=== PATIENT | female | born 1960 | race Caucasian/White ===

== ENCOUNTER → 2018-03-13 10:53 | Outpatient (CLI) | payer BC, SELFPAY ==
--- NOTE | 2018-03-13 | DI.MG.S_ITS ---
BILATERAL DIGITAL SCREENING MAMMOGRAM 3D/2D WITH CAD: 03/13/2018 CLINICAL: Routine screening. Comparison is made to exams dated: 09/27/2016 mammogram, 05/06/2015 mammogram, and 11/18/2014 mammogram - [facility]. The tissue of both breasts is heterogeneously dense. This may lower the sensitivity of mammography. Current study was also evaluated with a Computer Aided Detection (CAD) system. No significant masses, calcifications, or other findings are seen in either breast. There has been no significant interval change. IMPRESSION: NEGATIVE There is no mammographic evidence of malignancy. A 1 year screening mammogram is recommended. This exam was interpreted at Station ID: [id number]. NOTE: For mammograms, a report in lay terms will be sent to the patient. Approximately 15% of breast malignancies will not be visualized mammographically. In the management of a palpable breast mass, a negative mammogram must not discourage biopsy of a clinically suspicious lesion. Electronically Signed By: Monico salter/agueda:03/13/2018 21:47:58 letter sent: Normal Exam ACR BI-RADS Category 1: Negative 3341F
== END ==
PROVIDERS: Family Provider Family Medicine; PCP Family Medicine; Visit Provider Family Medicine
DX: Z12.31 Encounter for screening mammogram for malignant neoplasm of breast (principal)
CPT/HCPCS: 77063; 77067

== ENCOUNTER 2018-10-08 19:34 | Emergency (ER) | payer OTHER, SELFPAY ==
[2018-10-08 19:59] VITALS: BP 169/78; PULSE 103; PULSE 93; RESP 16; RESP 22; TEMP 36.2; O2SAT 98; O2SAT 99; BMI 24.7
[2018-10-08] MEDS: ALBUTEROL/IPRATROPIUM 3 ML AMPUL INH (19:59)
--- NOTE | 2018-10-08 20:05 | ED_ITS ---
HPI - URI/Sore Throat General Chief Complaint: Upper Respiratory Symptoms Stated Complaint: SOB, head cold Time Seen by Provider: 10/08/18 19:56 Source: patient Mode of arrival: ambulatory Limitations: no limitations History of Present Illness HPI Narrative: Patient is 58-year-old female who presents with upper respiratory like symptoms. She has had sinus and head cold for the last week. She was prescribed a Z-Eugene 3 days ago which she said really did not help and last evening settled into her chest and it got much worse. This evening family member came home and noticed that she was had audible wheezing and extreme difficulty breathing brought her to the emergency department. Patient has not had body aches or chills. She does feel like had a lot of nasal pressure and discharge. She says that she gets short of breath when she walks and does have some shortness of breath at rest. She denies any chest pain. Related Data Previous Rx's Medication Instructions Recorded azithromycin [Zithromax Z-Eugene] 0 mg PO QDAY #12 tab 03/04/17 azithromycin 250 mg tablet 250 mg PO DAILY #11 tab 10/02/18 amoxicillin 875 mg-potassium 1 tab PO BID #10 tab 10/08/18 clavulanate 125 mg tablet Allergies Allergy/AdvReac Type Severity Reaction Status Date / Time shellfish derived Allergy Severe SWELLING Unverified 12/04/17 11:57 [SHELLFISH DERIVED] OF TONGUE latex [LATEX] Allergy Mild ITCHY, SORE Unverified 12/04/17 11:57 POLLEN Allergy Mild Uncoded 12/04/17 11:57 FEATHERS Allergy Unknown Uncoded 12/04/17 11:57 Review of Systems Review of Systems ROS Unobtainable: All systems reviewed & are unremarkable except as noted in HPI and below Constitutional Denies chills, Denies fever(s), Denies headache(s), Denies lethargy and Denies weakness ENT Ears, Nose, Mouth, and Throat: Denies headache(s), Reports sinus pain and Reports sinus pressure Cardiovascular Denies chest pain, Denies irregular heart rhythm, Denies lightheadedness, Denies palpitations, Reports dyspnea on exertion and Denies orthopnea Respiratory Denies excessive phlegm production, Denies pain on inspiration, Reports dyspnea on exertion and Reports wheezing Gastrointestinal Gastrointestinal: Denies abdominal pain, Denies change in bowel habits, Denies diarrhea, Denies nausea and Denies vomiting Musculoskeletal Denies back pain, Denies muscle weakness, Denies numbness and Denies tingling Integumentary/Breasts Denies pruritus, Denies erythema, Denies rash and Denies wounds Neurologic Denies headache(s), Denies numbness, Denies tingling and Denies weakness Endocrine Denies palpitations Allergic/Immunologic Reports wheezing [facility] Medical History Carpal tunnel syndrome (Chronic) Endometriosis (Chronic) Foot pain (Chronic) Ovarian cyst (Chronic) Seasonal allergies (Chronic) Tinnitus (Chronic) Chickenpox (Resolved) Measles (Resolved) Mumps (Resolved) Surgical History Surgical procedure planned (Resolved ~2011) Anesthesia (Inactive) Status post cholecystectomy (~1997) Family History Brother Diabetes mellitus Father Age: 93 Prostate cancer Mother MS (multiple sclerosis) Social History Smoking Status: Never smoker Family History Brother Diabetes mellitus Father Age: 93 Prostate cancer Mother MS (multiple sclerosis) Social History Smoking Status: Never smoker Exam Initial Vital Signs Initial Vital Signs: Vital Signs Temperature 97.2 F L 10/08/18 19:59 Pulse Rate 93 H 10/08/18 19:59 Respiratory Rate 16 10/08/18 19:59 Blood Pressure 169/78 H 10/08/18 19:59 Pulse Oximetry 99 10/08/18 19:59 GENERAL: alert female appears in mild distress HEENT: Head atraumatic,EOMI, pupils reactive, Neck is supple CARDIOVASCULAR: Regular rate and rhythm without murmurs, rubs or gallops. RESPIRATORY: speaks in full sentences his without difficulty slightly decreased breath sounds bilaterally no wheezes or rales ABDOMEN: Soft, nontender. Normoactive bowel sounds all 4 quadrants. No guarding or rebound. EXTREMITIES: Normal range of motion, no clubbing or edema. Neurovascularly intact NEUROLOGICAL: Alert and oriented x4.Normal gait and speech. SKIN: Warm, dry, no laceration, no petechiae, no rashes or lesions. Scores PERC Score Age greater than or equal to 50 years: Yes Heart rate greater than or equal to 100 bpm: No Room Air O2 Sat less than 95%: No Unilateral leg swelling: No Recent trauma or surgery: No Hemoptysis: No Prior PE or DVT: No Hormone Use: No Total PERC Score: 1 Wells' Criteria for PE Clinical signs and symptoms of PE: No PE is #1 Dx or equally likely: No Heart rate > 100: No Immobilization at least 3 days or surg in previous 4 weeks: No History of PE or DVT: No Hemoptysis: No Malignancy w/Treatment within 6 months or palliative: No Wells' PE Score total: 0 Course Orders Ordered: ED Orders 10/08/18 20:26 XR chest 2V Stat Discontinued Medications Albuterol (Ventolin Hfa Prepack) 1 box MISC SEEINSTR ONE Stop: 10/08/18 20:58 Last Admin: 10/08/18 21:08 Dose: 1 box Albuterol/Ipratropium (Duoneb) 3 ml INH NOW ONE Stop: 10/08/18 19:58 Last Admin: 10/08/18 19:59 Dose: 3 ml Vital Signs - 8 hr 10/08/18 19:59 10/08/18 21:17 Temperature 97.2 F L Pulse Rate 103 H 98 H Respiratory Rate 22 18 Blood Pressure 169/78 H 94/55 L Pulse Oximetry 98 95 MDM - URI/Sore Throat Imaging Data Chest x-ray: Radiologist's impression: PROCEDURE: XR CHEST 2V INDICATIONS: cough short of breath TECHNIQUE: 2 views of the chest were acquired. COMPARISON: [facility], , CHEST 1 VIEW, 05/16/2016, 12:52. FINDINGS: Surgical changes and devices: None. Lungs and pleura: Lungs are clear. No pleural effusions or pneumothorax. Mediastinum: Mediastinal contours are normal. Heart size is normal. Bones and chest wall: No suspicious bony abnormalities. Soft tissues appear unremarkable. IMPRESSION: No acute cardiopulmonary pathology. Dictated by: Jason Odell M.D. on 10/08/2018 at 20:47 MDM Narrative Medical decision making narrative: patient is feeling instantly better after albuterol. She has no body aches fever or productive cough. She has sinus and upper respiratory like symptoms. She states that she actually did fly on an airplane all last week from [place] she said it was only 2 hr. No history of blood clots. She denies any calf pain. I did discuss with her possibility of PE although based on upper respiratory like symptoms, seems more like a viral syndrome. Patient was hesitant to have x-ray but eventually agreed. Declined any further workup. respiratory instructed her on spacer teaching. Discharge Plan Departure Patient Disposition: Home Clinical Impression: Upper respiratory infection Qualifiers: URI type: unspecified viral URI Qualified Code(s): J06.9 - Acute upper respiratory infection, unspecified Discharge Date/Time: 10/08/18 21:20 Interventions: ED Discharge Assessment Last Done: 10/08/18 21:17 Instructions: DI for Viral Upper Respiratory Infection -- Adult Activity Restrictions/Additional Instructions: *You have been diagnosed with upper respiratory infection *What to do: at this time no pneumonia identified. *Continue to take medications as directed Albuterol inhaler with spacer 1-2 puffs every 4 hr if needed for shortness of breath finished Augmentin as previously prescribed *Follow up with your primary care provider in 2-3 days *Return to ER if you should have increasing shortness of breath, fever, productive cough or any new, worsening or concerning symptoms Prescriptions: No Action azithromycin [Zithromax Z-Eugene] 250 MG tablet PO QDAY Qty: 12 RF: 1 azithromycin 250 mg tablet 250 mg PO DAILY Qty: 11 RF: 0 amoxicillin-pot clavulanate [Augmentin] 875-125 mg tablet 1 tab PO BID Qty: 10 RF: 0 Referrals: Missy Ram DO [Primary Care Provider] -
--- NOTE | 2018-10-08 20:26 | DI.RAD.S_ITS ---
PROCEDURE: XR CHEST 2V INDICATIONS: cough short of breath TECHNIQUE: 2 views of the chest were acquired. COMPARISON: [facility], , CHEST 1 VIEW, 05/16/2016, 12:52. FINDINGS: Surgical changes and devices: None. Lungs and pleura: Lungs are clear. No pleural effusions or pneumothorax. Mediastinum: Mediastinal contours are normal. Heart size is normal. Bones and chest wall: No suspicious bony abnormalities. Soft tissues appear unremarkable. IMPRESSION: No acute cardiopulmonary pathology. Dictated by: Jason Odell M.D. on 10/08/2018 at 20:47 Approved by: Jason Odell M.D. on 10/08/2018 at 20:47
[2018-10-08] MEDS: ALBUTEROL HFA PREPACK 1 BOX MISC (21:08)
--- NOTE | 2018-10-08 21:16 | PC.NURSE ---
I agree with all assessments and treatments completed by the student nurse.
[2018-10-08 21:17] VITALS: BP 94/55; PULSE 98; RESP 18; O2SAT 95
== END 2018-10-08 21:20 | disposition home or self-care (01) ==
PROVIDERS: Emergency Provider Emergency Medicine; Family Provider Family Medicine; PCP Family Medicine
DX: J06.9 Acute upper respiratory infection, unspecified (principal)
CPT/HCPCS: 71046; 94640; 99282; 99283

== ENCOUNTER → 2019-03-16 11:09 | Outpatient (CLI) | payer OTHER, SELFPAY ==
--- NOTE | 2019-03-16 | DI.MG.S_ITS ---
BILATERAL DIGITAL SCREENING MAMMOGRAM 3D/2D WITH CAD: 03/16/2019 CLINICAL: Routine screening. Comparison is made to exams dated: 03/13/2018 mammogram, 09/27/2016 mammogram, and 05/06/2015 mammogram - [facility]. The tissue of both breasts is heterogeneously dense. This may lower the sensitivity of mammography. Current study was also evaluated with a Computer Aided Detection (CAD) system. No significant masses, calcifications, or other findings are seen in either breast. There has been no significant interval change. IMPRESSION: NEGATIVE There is no mammographic evidence of malignancy. A 1 year screening mammogram is recommended. This exam was interpreted at Station ID: [id number]. NOTE: For mammograms, a report in lay terms will be sent to the patient. Approximately 15% of breast malignancies will not be visualized mammographically. In the management of a palpable breast mass, a negative mammogram must not discourage biopsy of a clinically suspicious lesion. Electronically Signed By: Neelima salgado/agueda:03/16/2019 12:39:14 letter sent: Normal Exam ACR BI-RADS Category 1: Negative 3341F
== END ==
PROVIDERS: Family Provider Family Medicine; PCP Family Medicine; Visit Provider Family Medicine
DX: Z12.31 Encounter for screening mammogram for malignant neoplasm of breast (principal)
CPT/HCPCS: 77063; 77067

== ENCOUNTER → 2019-03-17 07:29 | Outpatient (CLI) | payer OTHER, SELFPAY ==
[2019-03-17 08:11] LABS: Add Manual Diff / Slide Review NO; Basophils Absolute Auto 0 /uL (0-100); Basophils Percent Auto 0.8 % (0-2); Eosinophils Absolute Auto 200 /uL (0-450); Eosinophils Percent Auto 3.6 % (2-4); Hematocrit 40.7 % (36-46); Hemoglobin 13.8 g/dL (12.0-16.0); Lymphocytes Absolute Auto 2200 /uL (1100-4500); Lymphocytes Percent Auto 41.7 % (25-40); Mean Corpuscular HGB Conc 33.8 % (30-36); Mean Corpuscular Hemoglobin 30.5 PG (26-34); Mean Corpuscular Volume 90.3 fL (80-100); Monocytes Absolute Auto 400 /uL (0-900); Monocytes Percent Auto 7.6 % (3-14); Neutrophils Absolute Auto 2500 /uL (1500-7000); Neutrophils Percent Auto 46.3 % (50-75); Platelet Count 271 X10^3/uL (150-400); Red Blood Cell Count 4.51 X10^6/uL (4.0-5.2); Red Cell Distribution Width 12.7 % (11.6-14.8); White Blood Cell Count 5.3 X10^3/uL (4.5-11.0)
[2019-03-17 08:34] LABS: Alanine Aminotransferase 23 IU/L (9-52); Albumin 4.6 g/dL (3.5-5.0); Albumin Globulin Ratio 1.3 (1.0-2.8); Alkaline Phosphatase 79 U/L (38-126); Aspartate Aminotransferase 39 IU/L (14-36); BUN Creatinine Ratio 17.8 (6-22); Bilirubin Total 0.7 mg/dL (0.2-1.3); Blood Urea Nitrogen 16 mg/dL (7-17); Calcium 9.7 mg/dL (8.4-10.2); Carbon Dioxide 29 mmol/L (22-32); Chloride 103 mmol/L (98-107); Cholesterol 221 mg/dL (140-199); Erythrocyte Sedimentation Rate 11 MM/HR (0-20); Estimated Glomerular Filt Rate > 60.0 mL/min (>60); Globulin 3.5 g/dL (1.7-4.1); Glucose 90 mg/dL (80-110); HDL Cholesterol 63 mg/dL (40-60); HEMOLYSIS < 15 (0-50); LDL Cholesterol Calculated 141 mg/dL (<100); Potassium 4.2 mmol/L (3.4-5.1); Sodium 142 mmol/L (137-145); Total Protein 8.1 g/dL (6.3-8.2); Triglycerides 86 mg/dL (35-150)
[2019-03-17 08:35] LABS: C-Reactive Protein Quant < 0.5 mg/dL (<1.0)
[2019-03-17 08:38] LABS: Rheumatoid Factor < 8.6 IU/mL (<12.0)
[2019-03-17 09:01] LABS: TSH w/ Reflex to FT4 1.32 uIU/mL (0.47-4.68)
[2019-03-19 11:53] LABS: CCP Antibody (IgG) < 16 Units (< 20)
[2019-03-19 18:48] LABS: ANA Screen, IFA Negative (Negative)
[2019-03-20 14:46] LABS: Anti Thyroglobulin Antibody < 1 IU/mL (< 2); Thyroid Peroxidase Antibodies 1 IU/mL (< 9)
== END ==
PROVIDERS: PCP Family Medicine; Visit Provider Family Medicine
DX: M79.10 Myalgia, unspecified site (principal); R00.2 Palpitations; R21 Rash and other nonspecific skin eruption
CPT/HCPCS: 36415; 80053; 80061; 84443; 85025; 85651; 86038; 86140; 86200; 86376; 86430; 86800

== ENCOUNTER → 2019-03-26 15:04 | Outpatient (CLI) | payer OTHER, SELFPAY ==
--- NOTE | 2019-03-26 15:05 | DI.RAD.S_ITS ---
PROCEDURE: XR HIP W PEL IF DONE LT MIN 4V INDICATIONS: Hip pain TECHNIQUE: AP pelvis with lateral view(s) of the bilateral hip(s). COMPARISON: None. FINDINGS: Bones: No fractures or dislocations. Pelvic ring appears intact. No suspicious bony lesions. There is a slight degree of thinning of the joint interspace at each hip, symmetric bilaterally. Soft tissues: The visualized bowel gas pattern is normal. No suspicious soft tissue calcifications. IMPRESSION: Minimal hip joint osteoarthritis appears present at each hip, symmetric, without evidence of joint effusion or loose body. No prior trauma found. Dictated by: Pratik Mason M.D. on 03/26/2019 at 15:51 Approved by: Pratik Mason M.D. on 03/26/2019 at 15:52
== END ==
PROVIDERS: PCP Family Medicine; Visit Provider Family Medicine
DX: M25.552 Pain in left hip (principal)
CPT/HCPCS: 73522

== ENCOUNTER 2019-04-16 06:42 | Day surgery (SDC) | payer OTHER, SELFPAY ==
[2019-04-16 07:13] VITALS: BMI 24.2
[2019-04-16 07:16] VITALS: BP 101/56; PULSE 61; RESP 16; TEMP 35.9; O2SAT 96
[2019-04-16] MEDS: FLEETS ENEMA 1 EACH PR (07:45)
[2019-04-16] MEDS: SODIUM CHLORIDE 0.9% 1,000 ML 84 ML IV (08:12)
--- NOTE | 2019-04-16 08:14 | PM.HP.1 ---
History of Present Illness Date Patient Seen: 04/16/19 Time Patient Seen: 08:14 Chief complaint: [id number] Colonoscopy Narrative: The patient is a woman here for screening colonoscopy. Last exam was 10 years ago. No family history colon cancer. Patient History Medical History Carpal tunnel syndrome (Chronic) Endometriosis (Chronic) Foot pain (Chronic) Ovarian cyst (Chronic) Seasonal allergies (Chronic) Tinnitus (Chronic) Chickenpox (Resolved) Measles (Resolved) Mumps (Resolved) Surgical History Surgical procedure planned (Resolved ~2011) Anesthesia (Inactive) Status post cholecystectomy (~1997) Family History Brother Diabetes mellitus Father Age: 94 Prostate cancer Mother MS (multiple sclerosis) Social History household members: spouse Smoking Status: Never smoker Family & Social History Family History Brother Diabetes mellitus Father Age: 94 Prostate cancer Mother MS (multiple sclerosis) Social History: household members spouse Tobacco & Substance use: Smoking Status Never smoker alcohol intake frequency a few times a month Substance Use Type does not use Meds Home Medications Medication Instructions Recorded Confirmed Type [id number]-[id number] 1 tab PO DAILY 04/16/19 04/16/19 History [Multivitamin 50 Plus] Allergies Allergy/AdvReac Type Severity Reaction Status Date / Time shellfish derived Allergy Severe SWELLING Verified 04/16/19 07:12 [SHELLFISH DERIVED] OF TONGUE latex [LATEX] AdvReac Mild ITCHY, SORE Verified 04/16/19 07:12 POLLEN Allergy Mild Uncoded 12/04/17 11:57 FEATHERS Allergy Unknown Uncoded 12/04/17 11:57 Review of Systems Review of Systems All systems reviewed & are unremarkable except as noted in HPI and below Exam Vital Signs (past 8 hours): - 04/16/19 07:16 Temperature 96.6 F L Pulse Rate 61 Respiratory Rate 16 Blood Pressure 101/56 L Pulse Oximetry 96 Oxygen Delivery Method Room Air Narrative Exam Narrative: Pleasant cooperative patient no apparent distress. Lungs are clear to auscultation. No rales or rhonchi. Heart regular rate and rhythm no murmur gallop. Abdomen is soft nontender without mass. No obvious hernias. Patient is alert and oriented x3. Assessment & Plan Assessment & Plan narrative: The patient for a screening colonoscopy. I have discussed the procedure with them. Risks of bleeding, perforation which would necessitate major operation, failure to find remove all lesions, the potential tattoo were all discussed. All questions were answered. They wished to proceed.
--- NOTE | 2019-04-16 08:15 | PM.PREOP ---
Pre-operative Note Interval Note History & Physical reviewed/Exam performed by Physician: Yes Changes to H&P: No ASA Class (for procedural sedation): I
[2019-04-16] MEDS: MIDAZOLAM 5 MG/5 ML VIAL IV (08:50)
[2019-04-16] MEDS: fentaNYL 250 MCG/5 ML INJ IV (08:51)
--- NOTE | 2019-04-16 08:57 | P.OP.ENDO_ITS ---
Operative Date/Time/Diagnoses Date of procedure: 04/16/19 Time of procedure: 08:55 Pre-op diagnosis: Screening exam. Last exam 10 years ago. Post-op diagnosis: same (Internal hemorrhoids) Procedure & Clinicians Study performed: Colonoscopy Same procedure as scheduled: Yes Indications: Screening Surgeon: Damian Hassan Procedure Notes SCOAP/Timeout: Performed Procedure in detail: The patient was placed in the left lateral decubitus position and underwent IV sedation directed by the surgeon consisting of fentanyl and Versed. Digital exam was unremarkable. The scope was inserted and advanced through the rectum into the sigmoid, descending, transverse, and ascending colon. Pressure was applied and the patient repositioned to get that far. The cecum was reached identified by the ileocecal valve and the appendic eal opening. The ileocecal valve was[] cannulated. The terminal ileum was normal in appearance. The scope was gradually brought out. No Polyps were found. The scope ultimately was retroflexed in the rectum. The appearance was remarkable for internal hemorrhoids without ulceration.. The scope was removed and the patient tolerated the procedure well. Prep was good Scope withdrawal time: 7 minutes Sedation minutes: 29 Findings: internal hemorrhoids Specimen(s): none sent Complications: none Recommendations: Colonscopy in 10 years Follow up: as needed Disposition: PACU
[2019-04-16 09:00] VITALS: BP 101/56; PULSE 79; RESP 14; TEMP 36.6; O2SAT 98
[2019-04-16 09:05] VITALS: BP 93/49; PULSE 78; RESP 14; O2SAT 98
[2019-04-16 09:10] VITALS: BP 83/47; PULSE 72; RESP 15; O2SAT 98
[2019-04-16 09:16] VITALS: BP 93/54; PULSE 78; RESP 17; O2SAT 99
[2019-04-16 09:25] VITALS: BP 99/60; PULSE 82; RESP 17; TEMP 36.6; O2SAT 99
== END 2019-04-16 09:30 | disposition home or self-care (01) ==
PROVIDERS: PCP Family Medicine; Visit Provider Specialist
PROC: 0DJD8ZZ Inspection of Lower Intestinal Tract, Via Natural or Artificial Opening Endoscopic (ICD-10-PCS; CPT 45378; principal; 2019-04-16 07:45)
DX: Z12.11 Encounter for screening for malignant neoplasm of colon (principal); K64.8 Other hemorrhoids
CPT/HCPCS: G0121; 99152; 99153; J2250; J3010

== ENCOUNTER → 2020-07-16 13:02 | Outpatient (CLI) | payer OTHER, SELFPAY ==
--- NOTE | 2020-07-16 13:20 | DI.MG.S_ITS ---
Patient Name: ARVIND REHMAN date: 1960 Sex: F Attending Physician: Yo Indications: Date: 07/16/2020 13:13 At the request of: USMAN CARR Procedure: MM screening mammo BI BILATERAL DIGITAL SCREENING MAMMOGRAM 3D/2D WITH CAD: 07/16/2020 CLINICAL: Routine screening. Comparison is made to exams dated: 03/16/2019 mammogram, 03/13/2018 mammogram, and 09/27/2016 mammogram - [facility]. The tissue of both breasts is heterogeneously dense. This may lower the sensitivity of mammography. Current study was also evaluated with a Computer Aided Detection (CAD) system. No significant masses, calcifications, or other findings are seen in either breast. There has been no significant interval change. IMPRESSION: NEGATIVE There is no mammographic evidence of malignancy. A 1 year screening mammogram is recommended. This exam was interpreted at Station ID: [id number]. NOTE: For mammograms, a report in lay terms will be sent to the patient. Approximately 15% of breast malignancies will not be visualized mammographically. In the management of a palpable breast mass, a negative mammogram must not discourage biopsy of a clinically suspicious lesion. Electronically Signed By: Nash rodriguez/agueda:07/18/2020 08:14:15 letter sent: Normal Exam ACR BI-RADS Category 1: Negative 3341F
== END ==
PROVIDERS: PCP Family Medicine; Referring Provider Family Medicine; Visit Provider Family Medicine
DX: Z12.31 Encounter for screening mammogram for malignant neoplasm of breast (principal)
CPT/HCPCS: 77063; 77067

== ENCOUNTER → 2020-09-21 11:11 | Outpatient (CLI) | payer OTHER, SELFPAY ==
[2020-09-21 11:44] LABS: Hematocrit 42.3 % (36-46); Hemoglobin 13.7 g/dL (12.0-16.0); Mean Corpuscular HGB Conc 32.4 % (30-36); Mean Corpuscular Hemoglobin 29.6 PG (26-34); Mean Corpuscular Volume 91.4 fL (80-100); Platelet Count 266 X10^3/uL (150-400); Red Blood Cell Count 4.63 X10^6/uL (4.0-5.2); Red Cell Distribution Width 12.7 % (11.6-14.8); White Blood Cell Count 6.3 X10^3/uL (4.5-11.0)
[2020-09-21 12:43] LABS: Alanine Aminotransferase 17 IU/L (<35); Albumin 4.3 g/dL (3.5-5.0); Albumin Globulin Ratio 1.3 (1.0-2.8); Alkaline Phosphatase 78 U/L (38-126); Aspartate Aminotransferase 37 IU/L (14-36); BUN Creatinine Ratio 16.9 (6-22); Bilirubin Total 0.4 mg/dL (0.2-1.3); Blood Urea Nitrogen 13 mg/dL (7-17); Calcium 9.3 mg/dL (8.4-10.2); Carbon Dioxide 30 mmol/L (22-32); Chloride 107 mmol/L (98-107); Cholesterol 191 mg/dL (140-199); Estimated Glomerular Filt Rate > 60.0 mL/min (>60); Globulin 3.4 g/dL (1.7-4.1); Glucose 104 mg/dL (80-110); HDL Cholesterol 58 mg/dL (40-60); HEMOLYSIS < 15 (0-50); LDL Cholesterol Calculated 106 mg/dL (<100); Potassium 4.1 mmol/L (3.4-5.1); Sodium 140 mmol/L (137-145); Total Protein 7.7 g/dL (6.3-8.2); Triglycerides 135 mg/dL (35-150)
[2020-09-21 12:54] LABS: Neutrophils Absolute Manual 4158 /uL (3000-5900); Total Cells Counted 100
[2020-09-21 12:55] LABS: RBC Morphology Normal Morphology
[2020-09-21 13:10] LABS: TSH w/ Reflex to FT4 1.05 uIU/mL (0.47-4.68)
== END ==
PROVIDERS: PCP Family Medicine; Referring Provider Family Medicine; Visit Provider Family Medicine
DX: Z00.00 Encounter for general adult medical examination without abnormal findings (principal); Z62.9 Problem related to upbringing, unspecified
CPT/HCPCS: 36415; 80053; 80061; 84443; 85025

== ENCOUNTER → 2020-09-22 15:35 | Outpatient (CLI) | payer OTHER, SELFPAY ==
[2020-09-22] MEDS: COVID-19 VACC #1, MRNA(MOD) 100 MCG/0.5 ML VIAL IM (15:38)
== END ==
PROVIDERS: PCP Family Medicine; Visit Provider Internal Medicine
DX: Z23 Encounter for immunization (principal)
CPT/HCPCS: 0011A; 91301

== ENCOUNTER → 2020-10-20 15:05 | Outpatient (CLI) | payer OTHER, SELFPAY ==
[2020-10-20 18:14] LABS: Hep C Virus Ab w/Reflex Quant NEGATIVE s/c (NEGATIVE)
== END ==
PROVIDERS: PCP Family Medicine; Referring Provider Family Medicine; Visit Provider Family Medicine
DX: R79.89 Other specified abnormal findings of blood chemistry (principal); Z11.59 Encounter for screening for other viral diseases
CPT/HCPCS: 36415; 86803

== ENCOUNTER → 2020-10-20 15:33 | Outpatient (CLI) | payer OTHER, SELFPAY ==
[2020-10-20] MEDS: COVID-19 VACC #2, MRNA(MOD) 100 MCG/0.5 ML VIAL IM (15:41)
== END ==
PROVIDERS: PCP Family Medicine; Visit Provider Internal Medicine
DX: Z23 Encounter for immunization (principal)
CPT/HCPCS: 0012A; 91301

== ENCOUNTER 2022-11-05 13:05 | Emergency (ER) | payer BC, SELFPAY ==
[2022-11-05] VITALS (13 sets, daily range): BP systolic 121–155; BP diastolic 62–77; PULSE 87–130; RESP 32; TEMP 36.4; O2SAT 95–100
--- NOTE | 2022-11-05 13:13 | DI.RAD.S_ITS ---
PROCEDURE: XR CHEST 1V INDICATIONS: Shortness of breath TECHNIQUE: One view of the chest was acquired. [facility], CHEST 1 VIEW, 05/16/2016, 12:52. FINDINGS: Surgical changes and devices: None. Lungs and pleura: Lungs are clear. No pleural effusions or pneumothorax. Mediastinum: Mediastinal contours appear normal. Heart size is normal. Bones and chest wall: No suspicious bony lesions. Overlying soft tissues appear unremarkable. IMPRESSION: No acute cardiopulmonary process. Dictated by: Delvis Molina M.D. on 11/05/2022 at 13:42 Approved by: Delvis Molina M.D. on 11/05/2022 at 13:43
[2022-11-05] MEDS: ALBUTEROL/IPRATROPIUM 3 ML AMPUL INH ×2 (13:17→13:56)
[2022-11-05 13:50] LABS: Add Manual Diff / Slide Review NO; Basophils Absolute Auto 100 /uL (0-100); Basophils Percent Auto 0.6 % (0-2); Eosinophils Absolute Auto 200 /uL (0-450); Eosinophils Percent Auto 1.4 % (2-4); Hematocrit 39.7 % (36-46); Hemoglobin 13.6 g/dL (12.0-16.0); Lymphocytes Absolute Auto 3800 /uL (1100-4500); Lymphocytes Percent Auto 28.9 % (25-40); Mean Corpuscular HGB Conc 34.2 % (30-36); Mean Corpuscular Volume 87.5 fL (80-100); Monocytes Absolute Auto 1000 /uL (0-900); Monocytes Percent Auto 7.5 % (3-14); Neutrophils Absolute Auto 8100 /uL (1500-7000); Neutrophils Percent Auto 61.6 % (50-75); Platelet Count 236 X10^3/uL (150-400); Red Blood Cell Count 4.54 X10^6/uL (4.0-5.2); Red Cell Distribution Width 12.7 % (11.6-14.8); White Blood Cell Count 13.2 X10^3/uL (4.5-11.0)
[2022-11-05 13:57] LABS: INR 1.1 (0.9-1.3); Prothrombin Time 12.6 SECONDS (10.1-12.7)
[2022-11-05 14:02] LABS: Alanine Aminotransferase 24 IU/L (<35); Albumin 4.4 g/dL (3.5-5.0); Albumin Globulin Ratio 1.3 (1.0-2.8); Alkaline Phosphatase 101 U/L (38-126); Aspartate Aminotransferase 44 IU/L (14-36); BUN Creatinine Ratio 18.3 (6-22); Blood Urea Nitrogen 13 mg/dL (7-17); Calcium 8.9 mg/dL (8.4-10.2); Carbon Dioxide 19 mmol/L (22-32); Chloride 101 mmol/L (98-107); Estimated Glomerular Filt Rate > 60 mL/min (>60); Globulin 3.5 g/dL (1.7-4.1); Glucose 120 mg/dL (80-110); HEMOLYSIS < 15 (0-50); Lactate (Lactic Acid) 3.5 mmol/L (0.7-2.1); Potassium 3.1 mmol/L (3.4-5.1); Sodium 135 mmol/L (137-145); Total Protein 7.9 g/dL (6.3-8.2)
--- NOTE | 2022-11-05 14:08 | PC.NURSE ---
pt continues with wheezing. moving air well when auscultated however pt having difficulty breathing, having coughing, and a stridorous sound when inhaling. Hyma made aware and at bedside at this time. 100% RA. HR 140's s/p duoneb x 2
[2022-11-05 14:14] LABS: NT-proBNP (BNP-Adult 18+) 97 pg/mL (<125); Troponin I < 0.012 ng/mL (0.01-0.034)
[2022-11-05] MEDS: predniSONE 20 MG TABLET 60 MG PO (14:21)
[2022-11-05 14:31] LABS: Adenovirus Not Detected (Not Detect); B. parapertussis Not Detected (Not Detecte); Bordetella pertussis Not Detected (Not Detecte); Chlamydophila pneumoniae Not Detected (Not Detect); Coronavirus 229E Not Detected (Not Detect); Coronavirus HKU1 Not Detected (Not Detect); Coronavirus NL 63 Not Detected (Not Detect); Coronavirus OC43 Not Detected (Not Detect); Human Metapneumovirus Not Detected (Not Detect); Human Rhinovirus/Enterovirus Detected (Not Detect); Influenza A Not Detected (Not Detect); Influenza B Not Detected (Not Detect); Mycoplasma pneumoniae Not Detected (Not Detect); Parainfluenza Virus 1 Not Detected (Not Detect); Parainfluenza Virus 2 Not Detected (Not Detect); Parainfluenza Virus 3 Not Detected (Not Detect); Parainfluenza Virus 4 Not Detected (Not Detect); Respiratory Syncytial Virus Not Detected (Not Detect); SARS- CoV-2 Not Detected (Not Detecte)
[2022-11-05] MEDS: POTASSIUM CHLORIDE 20 MEQ TAB 40 MEQ PO (14:37)
--- NOTE | 2022-11-05 14:40 | PC.NURSE ---
Addendum entered by Kelsey Maguire R.N. 11/05/22 17:57: Educated patient on how to attempt to establish a new primary care provider. Also gave her a spacer for her inhaler and encouraged her to purchase a portable finger pulse ox for home use. Original Note: Patient reports feeling better and is asking questions about what going home will entail. Educated about potassium give per MAR and possible medications she could be sent home with.
[2022-11-05 15:46] LABS: Reflexed Lactate in 2 Hours Y
[2022-11-05] MEDS: SODIUM CHLORIDE 0.9% 1,000 ML 1000 ML IV (15:50)
[2022-11-05 16:51] LABS: Lactate 2HR (Lactic Acid Rflx) 2.6 mmol/L (0.7-2.1)
--- NOTE | 2022-11-12 18:51 | ED_ITS ---
HPI - SOB/Dyspnea <Kristy Angeles PA-C - Last Filed: 11/12/22 19:03> General Chief Complaint: Shortness of Breath/Dyspnea Stated Complaint: sob Time Seen by Provider: 11/05/22 13:19 Mode of arrival: Family Vehicle History of Present Illness HPI Narrative: 62-year-old female with past medical history asthma presents to the ED due to 2 days of wheezing, shortness of breath. patient states that yesterday she started feeling like she was coming down with a cold, woke up in the middle of the night feeling wheezy and short of breath. Patient states that she did not use her inhaler since she had run out of her prescription. Patient came to the ED since her symptoms worsened in the morning. Patient presents in the ED appearing dyspneic, anxious, with stridorous sounding breathing, saturating in the high 90s on room air. patient denies fever, chills, chest pain, nausea, vomiting, lightheadedness, dizziness, syncope. Related Data Home Medications Medication Instructions Recorded Confirmed [id number] 1 tab PO DAILY 04/16/19 09/21/20 tablet (Multivitamin 50 Plus tablet) Previous Rx's Medication Instructions Recorded azithromycin 250 mg tablet 250 mg PO DAILY #36 tabs 06/25/19 albuterol sulfate 90 mcg/actuation 2 puff inhalation Q4-6H PRN 11/05/22 aerosol inhaler shortness of breath or wheezing #8.5 grams albuterol sulfate 90 mcg/actuation 2 puff inhalation Q6H PRN 11/05/22 aerosol inhaler shortness of breath or wheezing #8.5 grams azithromycin 250 mg tablet 250 mg PO DAILY 14 days #14 tabs 11/05/22 Allergies Allergy/AdvReac Type Severity Reaction Status Date / Time shellfish derived Allergy Severe SWELLING Verified 11/05/22 13:12 [SHELLFISH DERIVED] OF TONGUE latex [LATEX] AdvReac Mild ITCHY, SORE Verified 11/05/22 13:12 POLLEN Allergy Mild Uncoded 11/05/22 13:12 FEATHERS Allergy Unknown Uncoded 11/05/22 13:12 Review of Systems <Kristy Angeles PA-C - Last Filed: 11/12/22 19:03> Review of Systems ROS Unobtainable: All systems reviewed & are unremarkable except as noted in HPI and below Constitutional Constitutional: Denies chills, Denies fatigue, Denies fever(s), Denies frequent falls, Denies lethargy and Denies weakness Eyes Eyes: Denies change in vision, Denies eye discharge, Denies irritation and Denies loss of vision ENT Ears, Nose, Mouth, and Throat: Denies change in voice, Denies dizziness, Reports nasal congestion, Reports nasal discharge, Denies neck pain, Denies sore throat and Denies throat swelling Cardiovascular Cardiovascular: Denies chest pain, Denies irregular heart rhythm, Denies lightheadedness, Denies palpitations, Reports dyspnea, Denies dyspnea on exertion and Denies orthopnea Respiratory Respiratory: Denies cough, Reports dyspnea, Denies dyspnea on exertion and Reports wheezing Gastrointestinal Gastrointestinal: Denies abdominal pain, Denies change in bowel habits, Denies diarrhea, Denies nausea and Denies vomiting Genitourinary Genitourinary: Denies hematuria, Denies flank pain, Denies urinary incontinence and Denies urinary urgency Musculoskeletal Musculoskeletal: Denies back pain, Denies muscle weakness, Denies neck pain, Denies numbness and Denies tingling Integumentary/Breasts Skin/Breast: Denies pruritus, Denies erythema, Denies rash and Denies wounds Neurologic Neurologic: Denies behavioral changes, Denies confusion, Denies dizziness, Denies frequent falls, Denies loss of vision, Denies numbness, Denies tingling and Denies weakness Psychiatric Psychiatric: Denies anxiety, Denies behavioral changes, Denies confusion, Denies depression, Denies homicidal ideation and Denies suicidal ideation Endocrine Endocrine: Denies fatigue, Denies flushing and Denies palpitations Hematologic/Lymphatic Hematologic/Lymphatic: Denies easy bruising Allergic/Immunologic Allergic/Immunologic: Denies urticaria, Denies throat swelling and Reports wheezing Patient History <Kristy Angeles PA-C - Last Filed: 11/12/22 19:03> Medical History Abdominal pain, LLQ (10/24/11) Allergies Bilateral tinnitus Carpal tunnel syndrome Chickenpox Endometriosis Foot pain Internal hemorrhoids Measles Mumps Ovarian cyst Seasonal allergies Tinnitus Surgical History Anesthesia Status post cholecystectomy (~1997) Surgical procedure planned (~2011) Family History Brother Diabetes mellitus Father Age: 97 Prostate cancer Mother MS (multiple sclerosis) Social History household members: spouse Smoking Status: Never smoker Smoking Status: Never smoker alcohol intake frequency: a few times a month Substance Use Type: does not use Exam <Kristy Angeles PA-C - Last Filed: 11/12/22 19:03> Narrative Exam Narrative: Const General:?cooperative, healthy appearing and comfortable [facility] Head:?normal to inspection Ears:?hearing grossly normal bilaterally Nose:?external nose normal Face and sinus:?normal facial exam and sinuses nontender Mouth:?oral mucosae normal Throat:?posterior oropharynx normal Eyes General:?appearance normal, both eyes and all related structures Neck Neck:?normal visual inspection and no lymphadenopathy noted Resp Effort & Inspection:?normal respiratory effort Auscultation:?clear to auscultation bilaterally patient making stridorous noises, however it appears that patient is anxious and overbreathing that sounds karen to stridor.. clear to auscultation bilaterally Cardio Rate:?regular rate Rhythm:?regular rhythm Neuro General:?patient alert, patient awake and patient oriented x3 Initial Vital Signs Initial Vital Signs: Vital Signs Temperature 97.6 F 11/05/22 13:10 Pulse Rate 124 H 11/05/22 13:10 Respiratory Rate 32 H 11/05/22 13:10 Pulse Oximetry 100 11/05/22 13:10 Oxygen Delivery Method Room Air 11/05/22 13:10 <Sam Bailon DO - Last Filed: 11/12/22 19:09> Initial Vital Signs Initial Vital Signs: Vital Signs Temperature 97.6 F 11/05/22 13:10 Pulse Rate 124 H 11/05/22 13:10 Respiratory Rate 32 H 11/05/22 13:10 Pulse Oximetry 100 11/05/22 13:10 Oxygen Delivery Method Room Air 11/05/22 13:10 Course <Kristy Angeles PA-C - Last Filed: 11/12/22 19:03> Orders Ordered: Discontinued Medications Albuterol/Ipratropium (Albuterol/Ipratropium 3 Ml Ampul) 3 ml INH NOW ONE Stop: 11/05/22 13:55 Last Admin: 11/05/22 13:56 Dose: 3 ml Documented By: CTS Sodium Chloride (Normal Saline 0.9%) 1,000 mls @ 1,000 mls/hr IV BOLUS ONE Stop: 11/05/22 16:30 Last Infusion: 11/05/22 17:25 Dose: 0 mls/hr Documented By: Admin: 11/05/22 15:50 Dose: 1,000 mls/hr Documented By: RL Potassium Chloride (Potassium Chloride 20 Meq Tab) 40 meq PO NOW ONE Stop: 11/05/22 14:21 Last Admin: 11/05/22 14:37 Dose: 40 meq Documented By: RL Prednisone (Prednisone 20 Mg Tablet) 60 mg PO NOW ONE Stop: 11/05/22 14:18 Last Admin: 11/05/22 14:21 Dose: 60 mg Documented By: RL <Sam Bailon DO - Last Filed: 11/12/22 19:09> Orders Ordered: Discontinued Medications Albuterol/Ipratropium (Albuterol/Ipratropium 3 Ml Ampul) 3 ml INH NOW ONE Stop: 11/05/22 13:55 Last Admin: 11/05/22 13:56 Dose: 3 ml Documented By: CTS Sodium Chloride (Normal Saline 0.9%) 1,000 mls @ 1,000 mls/hr IV BOLUS ONE Stop: 11/05/22 16:30 Last Infusion: 11/05/22 17:25 Dose: 0 mls/hr Documented By: Admin: 11/05/22 15:50 Dose: 1,000 mls/hr Documented By: RL Potassium Chloride (Potassium Chloride 20 Meq Tab) 40 meq PO NOW ONE Stop: 11/05/22 14:21 Last Admin: 11/05/22 14:37 Dose: 40 meq Documented By: RL Prednisone (Prednisone 20 Mg Tablet) 60 mg PO NOW ONE Stop: 11/05/22 14:18 Last Admin: 11/05/22 14:21 Dose: 60 mg Documented By: RL MDM - SOB/Dyspnea <Kristy Angeles PA-C - Last Filed: 11/12/22 19:03> Lab Data 11/05/22 13:27 11/05/22 13:27 Labs: Lab Results 11/05/22 11/05/22 11/05/22 Range/Units 13:27 13:27 13:27 WBC 13.2 H (4.5-11.0) X10^3/uL RBC 4.54 (4.0-5.2) X10^6/uL Hgb 13.6 (12.0-16.0) g/dL Hct 39.7 (36-46) % MCV 87.5 (80-100) fL MCH 30.0 (26-34) PG MCHC 34.2 (30-36) % RDW 12.7 (11.6-14.8) % Plt Count 236 (150-400) X10^3/uL Neut % (Auto) 61.6 (50-75) % Lymph % (Auto) 28.9 (25-40) % Dickson % (Auto) 7.5 (3-14) % Eos % (Auto) 1.4 L (2-4) % Baso % (Auto) 0.6 (0-2) % Neut # (Auto) 8100 H (0625-7068) /uL Lymph # (Auto) 3800 (3332-5677) /uL Dickson # (Auto) 1000 H (0-900) /uL Eos # (Auto) 200 (0-450) /uL Baso # (Auto) 100 (0-100) /uL PT 12.6 (10.1-12.7) SECONDS INR 1.1 (0.9-1.3) Sodium 135 L (137-145) mmol/L Potassium 3.1 L (3.4-5.1) mmol/L Chloride 101 (98-107) mmol/L Carbon Dioxide 19 L (22-32) mmol/L BUN 13 (7-17) mg/dL Creatinine 0.71 (0.52-1.04) mg/dL Estimated GFR > 60 (>60) mL/min BUN/Creatinine Ratio 18.3 (6-22) Glucose 120 H (80-110) mg/dL Lactate (0.7-2.1) mmol/L Calcium 8.9 (8.4-10.2) mg/dL Total Bilirubin 1.0 (0.2-1.3) mg/dL AST 44 H (14-36) IU/L ALT 24 (<35) IU/L Alkaline Phosphatase 101 (38-126) U/L Troponin I < 0.012 (0.01-0.034) ng/mL NT-Pro-B Natriuret Pep 97 (<125) pg/mL Total Protein 7.9 (6.3-8.2) g/dL Albumin 4.4 (3.5-5.0) g/dL Globulin 3.5 (1.7-4.1) g/dL Albumin/Globulin Ratio 1.3 (1.0-2.8) Chlamy pneumoniae PCR (Not Detect) Adenovirus (PCR) (Not Detect) B. pertussis DNA (PCR) (Not Detecte) B.parapertussis DNA PCR (Not Detecte) Coronavirus OC43 (PCR) (Not Detect) Coronavirus HKU1 (PCR) (Not Detect) Coronavirus 229E (PCR) (Not Detect) SARS-CoV-2 (PCR) (Not Detecte) Coronavirus NL63 (PCR) (Not Detect) Human Metapneumovir PCR (Not Detect) Influenza Type A (PCR) (Not Detect) Influenza Type B (PCR) (Not Detect) M. pneumoniae (PCR) (Not Detect) Parainfluenza 1 (PCR) (Not Detect) Parainfluenza 2 (PCR) (Not Detect) Parainfluenza 3 (PCR) (Not Detect) Parainfluenza 4 (PCR) (Not Detect) RSV (PCR) (Not Detect) Entero/Rhino (PCR) (Not Detect) 11/05/22 11/05/22 11/05/22 Range/Units 13:27 13:40 16:34 WBC (4.5-11.0) X10^3/uL RBC (4.0-5.2) X10^6/uL Hgb (12.0-16.0) g/dL Hct (36-46) % MCV (80-100) fL MCH (26-34) PG MCHC (30-36) % RDW (11.6-14.8) % Plt Count (150-400) X10^3/uL Neut % (Auto) (50-75) % Lymph % (Auto) (25-40) % Dickson % (Auto) (3-14) % Eos % (Auto) (2-4) % Baso % (Auto) (0-2) % Neut # (Auto) (0277-6810) /uL Lymph # (Auto) (5731-0993) /uL Dickson # (Auto) (0-900) /uL Eos # (Auto) (0-450) /uL Baso # (Auto) (0-100) /uL PT (10.1-12.7) SECONDS INR (0.9-1.3) Sodium (137-145) mmol/L Potassium (3.4-5.1) mmol/L Chloride (98-107) mmol/L Carbon Dioxide (22-32) mmol/L BUN (7-17) mg/dL Creatinine (0.52-1.04) mg/dL Estimated GFR (>60) mL/min BUN/Creatinine Ratio (6-22) Glucose (80-110) mg/dL Lactate 3.5 H 2.6 H (0.7-2.1) mmol/L Calcium (8.4-10.2) mg/dL Total Bilirubin (0.2-1.3) mg/dL AST (14-36) IU/L ALT (<35) IU/L Alkaline Phosphatase (38-126) U/L Troponin I (0.01-0.034) ng/mL NT-Pro-B Natriuret Pep (<125) pg/mL Total Protein (6.3-8.2) g/dL Albumin (3.5-5.0) g/dL Globulin (1.7-4.1) g/dL Albumin/Globulin Ratio (1.0-2.8) Chlamy pneumoniae PCR Not detected (Not Detect) Adenovirus (PCR) Not detected (Not Detect) B. pertussis DNA (PCR) Not detected (Not Detecte) B.parapertussis DNA PCR Not detected (Not Detecte) Coronavirus OC43 (PCR) Not detected (Not Detect) Coronavirus HKU1 (PCR) Not detected (Not Detect) Coronavirus 229E (PCR) Not detected (Not Detect) SARS-CoV-2 (PCR) Not detected (Not Detecte) Coronavirus NL63 (PCR) Not detected (Not Detect) Human Metapneumovir PCR Not detected (Not Detect) Influenza Type A (PCR) Not detected (Not Detect) Influenza Type B (PCR) Not detected (Not Detect) M. pneumoniae (PCR) Not detected (Not Detect) Parainfluenza 1 (PCR) Not detected (Not Detect) Parainfluenza 2 (PCR) Not detected (Not Detect) Parainfluenza 3 (PCR) Not detected (Not Detect) Parainfluenza 4 (PCR) Not detected (Not Detect) RSV (PCR) Not detected (Not Detect) Entero/Rhino (PCR) Detected H (Not Detect) MDM Narrative Medical decision making narrative: 62-year-old female with past medical history asthma presents to the ED due to 2 days of wheezing, shortness of breath. Concern for asthma exacerbation versus viral URI versus bronchitis versus pneumonia versus other. Will obtain labs, respiratory panel, chest x-ray, EKG. No wheezing appreciated on auscultation. Will give albuterol/ipratropium. Will reassess. labs within normal limits. Chest x-ray and EKG without acute findings. . Respiratory panel positive for rhino virus/ enterovirus. Patient continued to be stable through the ED stay. Coached patient on calming herself down and breathing deep and slow, explained to the patient that she was actually saturating well on room air and not wheezing. Patient's lactate was high on in itial presentation, likely due to patient's stridorous and anxious presentation and overbreathing. Lactate was rechecked after fluids and it trended down. Prescribed albuterol inhaler to keep on hand. ED return precautions were discussed with patient. Patient verbalized understanding. Medical records reviewed: Yes <Sam Bailon DO - Last Filed: 11/12/22 19:09> Lab Data Labs: Lab Results 11/05/22 11/05/22 11/05/22 Range/Units 13:27 13:27 13:27 WBC 13.2 H (4.5-11.0) X10^3/uL RBC 4.54 (4.0-5.2) X10^6/uL Hgb 13.6 (12.0-16.0) g/dL Hct 39.7 (36-46) % MCV 87.5 (80-100) fL MCH 30.0 (26-34) PG MCHC 34.2 (30-36) % RDW 12.7 (11.6-14.8) % Plt Count 236 (150-400) X10^3/uL Neut % (Auto) 61.6 (50-75) % Lymph % (Auto) 28.9 (25-40) % Dickson % (Auto) 7.5 (3-14) % Eos % (Auto) 1.4 L (2-4) % Baso % (Auto) 0.6 (0-2) % Neut # (Auto) 8100 H (8006-5549) /uL Lymph # (Auto) 3800 (7967-3169) /uL Dickson # (Auto) 1000 H (0-900) /uL Eos # (Auto) 200 (0-450) /uL Baso # (Auto) 100 (0-100) /uL PT 12.6 (10.1-12.7) SECONDS INR 1.1 (0.9-1.3) Sodium 135 L (137-145) mmol/L Potassium 3.1 L (3.4-5.1) mmol/L Chloride 101 (98-107) mmol/L Carbon Dioxide 19 L (22-32) mmol/L BUN 13 (7-17) mg/dL Creatinine 0.71 (0.52-1.04) mg/dL Estimated GFR > 60 (>60) mL/min BUN/Creatinine Ratio 18.3 (6-22) Glucose 120 H (80-110) mg/dL Lactate (0.7-2.1) mmol/L Calcium 8.9 (8.4-10.2) mg/dL Total Bilirubin 1.0 (0.2-1.3) mg/dL AST 44 H (14-36) IU/L ALT 24 (<35) IU/L Alkaline Phosphatase 101 (38-126) U/L Troponin I < 0.012 (0.01-0.034) ng/mL NT-Pro-B Natriuret Pep 97 (<125) pg/mL Total Protein 7.9 (6.3-8.2) g/dL Albumin 4.4 (3.5-5.0) g/dL Globulin 3.5 (1.7-4.1) g/dL Albumin/Globulin Ratio 1.3 (1.0-2.8) Chlamy pneumoniae PCR (Not Detect) Adenovirus (PCR) (Not Detect) B. pertussis DNA (PCR) (Not Detecte) B.parapertussis DNA PCR (Not Detecte) Coronavirus OC43 (PCR) (Not Detect) Coronavirus HKU1 (PCR) (Not Detect) Coronavirus 229E (PCR) (Not Detect) SARS-CoV-2 (PCR) (Not Detecte) Coronavirus NL63 (PCR) (Not Detect) Human Metapneumovir PCR (Not Detect) Influenza Type A (PCR) (Not Detect) Influenza Type B (PCR) (Not Detect) M. pneumoniae (PCR) (Not Detect) Parainfluenza 1 (PCR) (Not Detect) Parainfluenza 2 (PCR) (Not Detect) Parainfluenza 3 (PCR) (Not Detect) Parainfluenza 4 (PCR) (Not Detect) RSV (PCR) (Not Detect) Entero/Rhino (PCR) (Not Detect) 11/05/22 11/05/22 11/05/22 Range/Units 13:27 13:40 16:34 WBC (4.5-11.0) X10^3/uL RBC (4.0-5.2) X10^6/uL Hgb (12.0-16.0) g/dL Hct (36-46) % MCV (80-100) fL MCH (26-34) PG MCHC (30-36) % RDW (11.6-14.8) % Plt Count (150-400) X10^3/uL Neut % (Auto) (50-75) % Lymph % (Auto) (25-40) % Dickson % (Auto) (3-14) % Eos % (Auto) (2-4) % Baso % (Auto) (0-2) % Neut # (Auto) (2096-9895) /uL Lymph # (Auto) (1891-0039) /uL Dickson # (Auto) (0-900) /uL Eos # (Auto) (0-450) /uL Baso # (Auto) (0-100) /uL PT (10.1-12.7) SECONDS INR (0.9-1.3) Sodium (137-145) mmol/L Potassium (3.4-5.1) mmol/L Chloride (98-107) mmol/L Carbon Dioxide (22-32) mmol/L BUN (7-17) mg/dL Creatinine (0.52-1.04) mg/dL Estimated GFR (>60) mL/min BUN/Creatinine Ratio (6-22) Glucose (80-110) mg/dL Lactate 3.5 H 2.6 H (0.7-2.1) mmol/L Calcium (8.4-10.2) mg/dL Total Bilirubin (0.2-1.3) mg/dL AST (14-36) IU/L ALT (<35) IU/L Alkaline Phosphatase (38-126) U/L Troponin I (0.01-0.034) ng/mL NT-Pro-B Natriuret Pep (<125) pg/mL Total Protein (6.3-8.2) g/dL Albumin (3.5-5.0) g/dL Globulin (1.7-4.1) g/dL Albumin/Globulin Ratio (1.0-2.8) Chlamy pneumoniae PCR Not detected (Not Detect) Adenovirus (PCR) Not detected (Not Detect) B. pertussis DNA (PCR) Not detected (Not Detecte) B.parapertussis DNA PCR Not detected (Not Detecte) Coronavirus OC43 (PCR) Not detected (Not Detect) Coronavirus HKU1 (PCR) Not detected (Not Detect) Coronavirus 229E (PCR) Not detected (Not Detect) SARS-CoV-2 (PCR) Not detected (Not Detecte) Coronavirus NL63 (PCR) Not detected (Not Detect) Human Metapneumovir PCR Not detected (Not Detect) Influenza Type A (PCR) Not detected (Not Detect) Influenza Type B (PCR) Not detected (Not Detect) M. pneumoniae (PCR) Not detected (Not Detect) Parainfluenza 1 (PCR) Not detected (Not Detect) Parainfluenza 2 (PCR) Not detected (Not Detect) Parainfluenza 3 (PCR) Not detected (Not Detect) Parainfluenza 4 (PCR) Not detected (Not Detect) RSV (PCR) Not detected (Not Detect) Entero/Rhino (PCR) Detected H (Not Detect) Discharge Plan Departure Patient Disposition: Home Clinical Impression: Asthma exacerbation Instructions: DI for Asthma -- Adult Activity Restrictions/Additional Instructions: You were evaluated in the ED today for wheezing. Your respiratory panel was positive for rhino virus/enterovirus, which is essentially the cold virus. Your wheezing improved with the breathing treatments and prednisone. Your lactate was initially high, likely due to the labored breathing. You were given some IV fluids, and your lactate came down. You are being prescribed albuterol, prednisone to continue at home. Please follow-up with your PCP as soon as possible for further evaluation and treatment of the asthma. Return to the ED if you have chest pain, trouble breathing. Prescriptions: New albuterol sulfate 90 mcg/actuation HFA aerosol inhaler 2 puff inhalation Q4-6H PRN (Reason: shortness of breath or wheezing) Qty: 8.5 0RF No Action azithromycin 250 mg tablet 250 mg PO DAILY Qty: 36 0RF albuterol sulfate 90 mcg/actuation HFA aerosol inhaler 2 puff inhalation Q6H PRN (Reason: shortness of breath or wheezing) Qty: 8.5 3RF azithromycin 250 mg tablet 250 mg PO DAILY 14 Days Qty: 14 3RF Multivitamin 50 Plus Tablet 1 tab PO DAILY Referrals: Miscellaneous,Doctor, MD [Primary Care Provider] - Stand Alone Forms: Patient Portal/API <Sam Bailon, DO - Last Filed: 11/12/22 19:09> Cosign ED Attending Cosignature Attestation: Dr Bailon Co-Sign Statement: I was available for consultation during this patient's emergency department visit. This chart is signed by myself for administrative purposes only. I did not have direct contact with this patient during this visit. They were seen independently by the APC.
== END 2022-11-05 17:58 | disposition home or self-care (01) ==
PROVIDERS: Emergency Medicine; Emergency Provider Student in an Organized Health Care Education/Training Program
DX: J45.901 Unspecified asthma with (acute) exacerbation (principal); B34.8 Other viral infections of unspecified site; R79.89 Other specified abnormal findings of blood chemistry; Z20.822 Contact with and (suspected) exposure to COVID-19
CPT/HCPCS: 36415; 71045; 80053; 83605; 83880; 84484; 85025; 85610; 87633; 99284

== ENCOUNTER → 2023-05-15 15:31 | Outpatient (CLI) | payer BC, SELFPAY ==
--- NOTE | 2023-05-15 | DI.MG.S_ITS ---
BILATERAL DIGITAL SCREENING MAMMOGRAM 3D/2D WITH CAD: 05/15/2023 CLINICAL: Routine screening. Comparison is made to exams dated: 07/16/2020 mammogram, 03/16/2019 mammogram, and 03/13/2018 mammogram - [facility]. Both breasts are heterogeneously dense, which may obscure small masses (category c / 51-75% glandular tissue). Current study was also evaluated with a Computer Aided Detection (CAD) system. No significant masses, calcifications, or other findings are seen in either breast. There has been no significant interval change. IMPRESSION: NEGATIVE There is no mammographic evidence of malignancy. A 1 year screening mammogram is recommended. Based on the Tyrer Cuzick model (a risk assessment model) the patient's lifetime risk is 7.7% and her 10 year risk is 3.5%. According to the ACR, ACS, and NCCN guidelines, an annual breast MRI exam along with mammogram is recommended if the patient's lifetime risk is 20% or greater. This exam was interpreted at Station ID: [id number]. NOTE: For mammograms, a report in lay terms will be sent to the patient. Approximately 15% of breast malignancies will not be visualized mammographically. In the management of a palpable breast mass, a negative mammogram must not discourage biopsy of a clinically suspicious lesion. Electronically Signed By: Shena [email or web address]/agueda:05/16/2023 14:21:15 letter sent: Normal Exam ACR BI-RADS Category 1: Negative 3341F
== END ==
PROVIDERS: PCP Family Medicine; Referring Provider Family Medicine; Visit Provider Family Medicine
DX: Z12.31 Encounter for screening mammogram for malignant neoplasm of breast (principal)
CPT/HCPCS: 77063; 77067

== ENCOUNTER → 2024-03-25 08:07 | Outpatient (CLI) | payer MEDICARE, OTHER, SELFPAY ==
[2024-03-25 09:04] LABS: Add Manual Diff / Slide Review NO; Basophils Absolute Auto 100 /uL (0-100); Basophils Percent Auto 0.8 % (0-2); Eosinophils Absolute Auto 300 /uL (0-450); Eosinophils Percent Auto 3.2 % (2-4); Hemoglobin 13.5 g/dL (12.0-16.0); Lymphocytes Absolute Auto 4700 /uL (1100-4500); Lymphocytes Percent Auto 53.9 % (25-40); Mean Corpuscular HGB Conc 33.8 % (30-36); Mean Corpuscular Hemoglobin 30.9 PG (26-34); Mean Corpuscular Volume 91.4 fL (80-100); Monocytes Absolute Auto 600 /uL (0-900); Monocytes Percent Auto 6.4 % (3-14); Neutrophils Absolute Auto 3100 /uL (1500-7000); Neutrophils Percent Auto 35.7 % (50-75); Platelet Count 227 X10^3/uL (150-400); Red Blood Cell Count 4.37 X10^6/uL (4.0-5.2); Red Cell Distribution Width 12.6 % (11.6-14.8); White Blood Cell Count 8.8 X10^3/uL (4.5-11.0)
[2024-03-25 09:26] LABS: Alanine Aminotransferase 21 IU/L (<35); Albumin 4.2 g/dL (3.5-5.0); Albumin Globulin Ratio 1.4 (1.0-2.8); Alkaline Phosphatase 87 U/L (38-126); Aspartate Aminotransferase 36 IU/L (14-36); BUN Creatinine Ratio 12.9 (6-22); Bilirubin Total 0.5 mg/dL (0.2-1.3); Blood Urea Nitrogen 11 mg/dL (7-17); Calcium 8.9 mg/dL (8.4-10.2); Carbon Dioxide 26 mmol/L (22-32); Chloride 109 mmol/L (98-107); Estimated Glomerular Filt Rate > 60 mL/min (>60); Globulin 2.9 g/dL (1.7-4.1); Glucose 94 mg/dL (80-110); HEMOLYSIS < 15 (0-50); Potassium 4.2 mmol/L (3.4-5.1); Sodium 140 mmol/L (137-145); Total Protein 7.1 g/dL (6.3-8.2)
[2024-03-25 09:59] LABS: TSH w/ Reflex to FT4 1.79 uIU/mL (0.47-4.68)
== END ==
LOC: LAB 08:08
PROVIDERS: PCP Family Medicine; Referring Provider Family Medicine; Visit Provider Family Medicine
DX: R09.82 Postnasal drip (principal); R53.83 Other fatigue; N63.0 Unspecified lump in unspecified breast; J45.909 Unspecified asthma, uncomplicated; T78.40XA Allergy, unspecified, initial encounter
CPT/HCPCS: 36415; 80053; 84443; 85025

== ENCOUNTER → 2024-04-08 12:46 | Outpatient (CLI) | payer MEDICARE, OTHER, SELFPAY ==
--- NOTE | 2024-04-08 12:48 | DI.US.S_ITS ---
LIMITED ULTRASOUND OF LEFT BREAST: 04/08/2024 CLINICAL: Palpable left breast lump. Comparison is made to exams dated: 04/08/2024 mammogram, 05/15/2023 mammogram, 07/16/2020 mammogram, 03/16/2019 mammogram, 03/13/2018 mammogram, and 09/27/2016 mammogram - [facility]. Color flow and real-time ultrasound of the left breast 6 o'clock region were performed. Sousa scale images of the real-time examination were reviewed. No significant abnormalities were seen sonographically in the left breast. Specifically, no finding to correspond to the patient's mammographic finding of possible lipoma. IMPRESSION: NEGATIVE No suspicious solid mass to correlate to the palpable abnomality. There is no sonographic evidence of malignancy. Return to annual mammogram screening schedule is recommended. Findings and recommendations were conveyed to the patient at time of exam. This exam was interpreted at Station ID: [id number]. Electronically Signed By: Neelima salgado/:04/08/2024 14:51:34 letter sent: Normal Exam Ultrasound BI-RADS: 1 Negative
--- NOTE | 2024-04-08 12:48 | DI.CT.S_ITS ---
PROCEDURE: CT SINUS SCREEN WO CON INDICATIONS: chronic sinus pain, drainage TECHNIQUE: Noncontrast 3.0 mm axial images acquired from the frontal sinuses to the mid-sella, with coronal and sagittal reformats. For radiation dose reduction, the following was used: automated exposure control, adjustment of mA and/or kV according to patient size. COMPARISON: None. FINDINGS: Image quality: Excellent. Maxillary Sinuses: No bony remodeling or destruction. Sinuses are clear. Ethmoid Air Cells: No bony remodeling or destruction. Sinuses are clear. Sphenoid Sinuses: No bony remodeling or destruction. Sinuses are clear. The sphenoid ethmoid recess are clear. Frontal Sinuses: No bony remodeling or destruction. Sinuses are clear. The frontoethmoidal recesses are clear. Ostiomeatal Complexes: Ostiomeatal complexes are patent. And a the Miscellaneous: Visualized intra-orbital contents are normal. No lori bullosa or paradoxical turbinate curvature. No nasal septal deviation. IMPRESSION: The paranasal sinuses clear. The outflow tracts are patent. Dictated by: Bert Hillman M.D. on 04/08/2024 at 16:46 Approved by: Bert Hillman M.D. on 04/08/2024 at 16:52
--- NOTE | 2024-04-08 12:48 | DI.MG.S_ITS ---
BILATERAL DIGITAL DIAGNOSTIC MAMMOGRAM 3D/2D: 04/08/2024 CLINICAL: Left breast lump felt by patient x's 3 months. No CBE, due for bilateral. Comparison is made to exams dated: 05/15/2023 mammogram, 07/16/2020 mammogram, 03/16/2019 mammogram, and 03/13/2018 mammogram - [facility]. Both breasts are heterogeneously dense, which may obscure small masses (category c / 51-75% glandular tissue). There is a possible 2.4 cm oval fat containing lipoma with a circumscribed margin in the left breast at 7 o'clock anterior depth. This is not seen in additional views. This corresponds to the palpable abnormality. No other new mammographic findings. No other significant masses, calcifications, or other findings are seen in either breast. Mammograms are otherwise stable. IMPRESSION: INCOMPLETE: NEEDS ADDITIONAL IMAGING EVALUATION Bilateral mammograms are stable. There is a possible 2.4 cm lipoma in the left breast that corresponds to the palpable abnormality. An ultrasound is recommended. This was performed immediately following this exam. Based on the Tyrer Cuzick model (a risk assessment model) the patient's lifetime risk is 7.4% and her 10 year risk is 3.5%. According to the ACR, ACS, and NCCN guidelines, an annual breast MRI exam along with mammogram is recommended if the patient's lifetime risk is 20% or greater. This exam was interpreted at Station ID: [id number]. NOTE: For mammograms, a report in lay terms will be sent to the patient. Approximately 15% of breast malignancies will not be visualized mammographically. In the management of a palpable breast mass, a negative mammogram must not discourage biopsy of a clinically suspicious lesion. Electronically Signed By: Neelima salgado/:04/08/2024 14:12:46 ACR BI-RADS Category 0: Incomplete [id number]
== END ==
LOC: CT 12:48
PROVIDERS: PCP Family Medicine; Referring Provider Family Medicine; Visit Provider Family Medicine
DX: R92.2 Inconclusive mammogram; N63.20 Unspecified lump in the left breast, unspecified quadrant; R92.333 Mammographic heterogeneous density, bilateral breasts; J45.909 Unspecified asthma, uncomplicated; R09.82 Postnasal drip; R53.83 Other fatigue; T78.40XA Allergy, unspecified, initial encounter
CPT/HCPCS: 70486; 76642; 77066; G0279

== ENCOUNTER → 2024-04-17 09:02 | Outpatient (CLI) | payer MEDICARE, OTHER, SELFPAY ==
[2024-04-17 10:09] LABS: Cholesterol 169 mg/dL (140-199); HDL Cholesterol 52 mg/dL (40-60); LDL Cholesterol Calculated 97 mg/dL (<100); Triglycerides 98 mg/dL (35-150)
== END ==
LOC: LAB 09:03
PROVIDERS: PCP Family Medicine; Referring Provider Family Medicine; Visit Provider Family Medicine
DX: R07.9 Chest pain, unspecified (principal)
CPT/HCPCS: 36415; 80061

== ENCOUNTER → 2024-06-17 13:23 | Outpatient (CLI) | payer MEDICARE, OTHER, SELFPAY ==
[2024-06-17 15:22] LABS: Add Manual Diff / Slide Review NO; Basophils Absolute Auto 100 /uL (0-100); Basophils Percent Auto 0.9 % (0-2); Eosinophils Absolute Auto 300 /uL (0-450); Eosinophils Percent Auto 3.5 % (2-4); Hematocrit 38.6 % (36-46); Hemoglobin 13.1 g/dL (12.0-16.0); Lymphocytes Absolute Auto 4300 /uL (1100-4500); Lymphocytes Percent Auto 51.3 % (25-40); Mean Corpuscular HGB Conc 33.9 % (30-36); Mean Corpuscular Hemoglobin 30.9 PG (26-34); Mean Corpuscular Volume 91.1 fL (80-100); Monocytes Absolute Auto 500 /uL (0-900); Neutrophils Absolute Auto 3200 /uL (1500-7000); Neutrophils Percent Auto 38.3 % (50-75); Platelet Count 236 X10^3/uL (150-400); Red Blood Cell Count 4.24 X10^6/uL (4.0-5.2); Red Cell Distribution Width 12.9 % (11.6-14.8); White Blood Cell Count 8.4 X10^3/uL (4.5-11.0)
[2024-06-17 15:59] LABS: Alanine Aminotransferase 19 IU/L (<35); Albumin 4.2 g/dL (3.5-5.0); Albumin Globulin Ratio 1.5 (1.0-2.8); Alkaline Phosphatase 93 U/L (38-126); Aspartate Aminotransferase 34 IU/L (14-36); BUN Creatinine Ratio 16.9 (6-22); Bilirubin Total 0.5 mg/dL (0.2-1.3); Blood Urea Nitrogen 15 mg/dL (7-17); Calcium 9.3 mg/dL (8.4-10.2); Carbon Dioxide 26 mmol/L (22-32); Chloride 103 mmol/L (98-107); Estimated Glomerular Filt Rate > 60 mL/min (>60); Globulin 2.8 g/dL (1.7-4.1); Glucose 102 mg/dL (80-110); HEMOLYSIS < 15 (0-50); Potassium 4.6 mmol/L (3.4-5.1); Sodium 137 mmol/L (137-145)
== END ==
PROVIDERS: PCP Family Medicine; Visit Provider Physician Assistant
DX: K21.9 Gastro-esophageal reflux disease without esophagitis (principal); Z12.11 Encounter for screening for malignant neoplasm of colon
CPT/HCPCS: 36415; 80053; 85025

== ENCOUNTER → 2025-06-18 12:51 | Outpatient (CLI) | payer MEDICARE, OTHER, SELFPAY ==
--- NOTE | 2025-06-18 12:53 | DI.MG.S_ITS ---
MM screening mammo BI: 06/18/2025. BI-RADS: 1 CLINICAL: 64-year old female for bilateral screening mammogram. Tyrer-Cuzick lifetime risk of 5.7%. No personal or first-degree family history of breast cancer. PRIOR EXAMS 04/08/2024, 05/15/2023, 07/16/2020, 03/16/2019, 03/13/2018, 09/27/2016. MAMMOGRAPHY TECHNIQUE: 2D and 3D (tomosynthesis) digital mammographic views obtained, with additional images as needed for full coverage. Current study was also evaluated with a Computer Aided Detection (CAD) system. DENSITY C. The breasts are heterogeneously dense, which may obscure small masses. MAMMOGRAPHY FINDINGS Bilateral: No suspicious mass, asymmetry, microcalcification, or other abnormality seen. IMPRESSION: * No evidence of malignancy. RECOMMENDATIONS Bilateral * Annual screening mammography. OVERALL ASSESSMENT CATEGORY BI-RADS-1: Negative. The [employer] recommends annual screening mammography beginning at age 40 for women with average risk of breast cancer. ELECTRONICALLY SIGNED: George Longo M.D. on 06/19/2025 at 10:20:47 AM PT Interpreting Station ID: [id number]
== END ==
LOC: MAMMO 12:52
PROVIDERS: PCP Family Medicine; Referring Provider Family Medicine; Visit Provider Family Medicine
DX: Z12.31 Encounter for screening mammogram for malignant neoplasm of breast (principal); R92.333 Mammographic heterogeneous density, bilateral breasts
CPT/HCPCS: 77063; 77067

== ENCOUNTER → 2025-07-01 09:08 | Outpatient (CLI) | payer MEDICARE, OTHER, SELFPAY ==
[2025-07-01 09:48] LABS: Add Manual Diff / Slide Review NO; Hematocrit 39.6 % (36-46); Hemoglobin 13.5 g/dL (12.0-16.0); Lymphocytes Absolute Auto 6700 /uL (1100-4500); Mean Corpuscular HGB Conc 34.0 % (30-36); Mean Corpuscular Hemoglobin 30.5 PG (26-34); Mean Corpuscular Volume 89.5 fL (80-100); Platelet Count 290 X10^3/uL (150-400)
[2025-07-01 10:16] LABS: Alanine Aminotransferase 18 IU/L (<35); Albumin 4.3 g/dL (3.5-5.0); Albumin Globulin Ratio 1.4 (1.0-2.8); Alkaline Phosphatase 78 U/L (38-126); Blood Urea Nitrogen 16 mg/dL (7-17); Calcium 9.3 mg/dL (8.4-10.2); Carbon Dioxide 26 mmol/L (22-32); Chloride 108 mmol/L (98-107); Cholesterol 190 mg/dL (140-199); Estimated Glomerular Filt Rate > 60 mL/min (>60); Globulin 3.0 g/dL (1.7-4.1); Glucose 99 mg/dL (70-99); HDL Cholesterol 65 mg/dL (40-60); HEMOLYSIS < 15 (0-50); Potassium 4.8 mmol/L (3.4-5.1); Sodium 139 mmol/L (137-145); Total Protein 7.3 g/dL (6.3-8.2); Triglycerides 74 mg/dL (35-150)
[2025-07-01 15:10] LABS: HIV 1 & 2 Ab/Ag 4th Gen Combo NEGATIVE (NEGATIVE); Hep C Virus Ab w/Reflex Quant NEGATIVE s/c (NEGATIVE)
== END ==
PROVIDERS: PCP Family Medicine; Referring Provider Family Medicine; Visit Provider Family Medicine
DX: R53.83 Other fatigue (principal)
CPT/HCPCS: 36415; 80053; 80061; 85025; 86803; 87389

== ENCOUNTER → 2025-07-08 10:46 | Outpatient (CLI) | payer MEDICARE, OTHER, SELFPAY ==
--- NOTE | 2025-07-08 10:47 | DI.RAD.S_ITS ---
PROCEDURE: XR DEXA AXIAL SKELETON INDICATIONS: screening osteoporosis COMPARISON: None. FINDINGS: Lumbar Spine: Bone mineral density 0.952 g/cm2, T score -0.9. Left Femoral Neck: Bone mineral density 0.743 g/cm2, T score -1.0. Left Hip: Bone mineral density 0.782 g/cm2, T score -1.3. Fracture Risk Calculation (when applicable): 10-year fracture risk of a major osteoporotic fracture 8.4 percent and of a hip fracture 0.7 percent. (T score greater or equal to -1.0 to: NORMAL) (T score from -1.1 to -2.4: OSTEOPENIA) (T score less than or equal to -2.5: OSTEOPOROSIS) IMPRESSION: Osteopenia Follow-up guidelines as follows: Osteoporosis: Consider a repeat DEXA and Vertebral Fracture Assessment (VFA) exam in 2 years or sooner if medically necessary, to reassess this patient's status. Osteopenia: Consider a repeat DEXA in 2-3 years to reassess this patient's status, or if there is a new clinical indication. Normal: Consider a repeat DEXA in 5 years or sooner, or if there is a new clinical indication. All treatment decisions require clinical judgment and consideration of individual patient factors, including patient preferences, comorbidities, previous drug use, risk factors not captured in the FRAX model (e.g., frailty, falls, vitamin D deficiency, increased bone turnover, interval significant decline in bone density ) and possible under- or over-estimation of fracture risk by FRAX. In addition, the [employer] Guide recommends that FDA-approved medical therapies be considered in postmenopausal women and men age >= 50 years with a: * Hip or vertebral (clinical or morphometric) fracture * T-score of <=-2.5 at the spine or hip * Ten-year fracture probability by FRAX of >= 3% for hip fracture or >=20% for major osteoporotic fracture. Dictated by: Trung Nascimento M.D. on 07/08/2025 at 12:50 Approved by: Trung Nascimento M.D. on 07/08/2025 at 12:50
== END ==
LOC: RAD 10:47
PROVIDERS: PCP Family Medicine; Referring Provider Family Medicine; Visit Provider Family Medicine
DX: Z13.820 Encounter for screening for osteoporosis (principal); M85.88 Other specified disorders of bone density and structure, other site
CPT/HCPCS: 77080